=== PATIENT | female | born 1985 | race African-American/Black ===

== ENCOUNTER 2017-03-07 20:30 | Observation (INO) ==
[2017-03-07] MEDS ORDERED: SODIUM CHLORIDE 0.9% 500 ML IV STA (20:51)
[2017-03-07 21:04] LABS: Basophils # 0.1 10*3/uL (0.0-0.2); Basophils % 0.5 % (0.0-0.8); Eosinophils # 0.1 10*3/uL (0.0-0.87); Eosinophils % 0.6 % (0.00-10.9); Hematocrit 39.5 VOL% (35.7-47.0); Immature Granulocytes % 0.6 %; Immature Granulocytes Absolute 0.07 #; Lymphocytes # 4.1 10*3/uL (1.4-4.0); Lymphocytes % 36.9 % (21.3-54.2); Mean Corpuscular HGB Conc 32.9 GM/DL (32-36); Mean Corpuscular Hemoglobin 27 PG (27-34); Mean Corpuscular Volume 80.4 FL (87-102); Monocytes # 0.8 10*3/uL (0.11-0.8); Monocytes % 6.8 % (1.7-12.7); Neutrophils % 54.6 % (38.7-73.9); Platelet Count 284 T/CUMM (130-400); Red Blood Count 4.91 MC/CUMM (3.8-5.5); Red Cell Distribution Width 14.8 % (9.3-17.3)
[2017-03-07 21:11] LABS: Apearance,Urine Slightly Hazy (Clear); Bacteria,Urine Occasional /HPF (Few); Bilirubin,Urine Negative (Negative); Blood, Urine Negative (Negative); Glucose,Urine (UA) Negative (Negative); Ketones,Urine Negative (Negative); Mucus,Urine Few /LPF (Occasional); Nitrite,Urine Negative (Negative); Protein,Urine Negative; RBC,Urine 5 /HPF (0-4); Squamous Epithelial Cell,Urine Occasional /HPF (0-10); Urine Color Yellow (Yellow); Urine Specific Gravity 1.016 (1.001-1.035); Urine Urobilinogen < 2.0 EU/DL (0.2-1.0); WBC,Urine 2 /HPF (0-6)
[2017-03-07] MEDS ORDERED: cefTRIAXone 1,000 MG in SODIUM CHLORIDE 0.9% 100 ML IV STA (21:25)
[2017-03-07 21:37] LABS: Alanine Aminotransferase 22 U/L (13-56); Albumin 3.5 G/DL (3.4-5.0); Alkaline Phosphatase 73 U/L (45-117); Aspartate Amino Transferase 14 U/L (0-37); Bilirubin,Total < 0.39 MG/DL (0.2-1.0); Blood Urea Nitrogen 9 MG/DL (7-18); Calcium 8.9 MG/DL (8.5-10.1); Glucose 131 MG/DL (74-106); Osmolality,Calculated 275.7 MOS/KG (273-304); Potassium 3.8 MMOL/L (3.5-5.1); Sodium 138 MMOL/L (136-145); Total Protein 6.8 G/DL (6.4-8.3)
--- NOTE | 2017-03-07 21:40 | Emergency Department Note ---
Carmela Hill Mantricia, am scribing for, and in the presence of, Sly Ye MD 21:06. Ephraim Hill Charles R, MD, personally performed the services described in this documentation, ascribed by Carlos Casey in my presence, and it is both accurate and complete 140 . Arrival - Arrival Chief Complaint: Abdominal / Flank Pain Stated Complaint: abdominal pain ED Nursing Triage Note: pt presented to triage via w/c with c/o lower abd pain and n/v x 1-2 hrs. pt states she had a (+) home pregancy test last week. denies vaginal bleeding. denies fever Mode of Arrival: Ambulatory Limitations: No Limitations Source: Patient Time Seen by Provider: 03/07/17 20:45 - History of Present Illness HPI Narrative: Pt is a 32 y/o black female ambulating to ED with c/o abdominal pain that onset today. She also c/o lower back pain and N/V. She reports that she thinks that she's having a miscarriage. Pt had a positive home test test last week and is not sure how far along she is. She states that she has an appointment with Dr. Michael. she reports that she is not sure when her LNMP was because she may have 2 periods a year. Because of this, Dr. Michael placed pt on a contraceptive. she recently stopped taking the contraceptive because she wanted to get . She denies any blood in urine. No other complaints were reported to ED. Onset (ago): hour(s) Consistency: constant Severity: mild Date of Last Menstrual Period: unknown Allergies/Adverse Reactions: Allergies Allergy/AdvReac Type Severity Reaction Status Date / Time No Known Allergies Allergy Verified 07/03/16 12:30 Home Medications: Home Medications Medication Instructions Recorded Confirmed Type No Known Home Medications [No 07/03/16 07/03/16 History Known Home Medications] Review of System - Review of System 12 point system: reviewed and no additional remarkable complaints except as stated - Review of System Constitutional: Absent: chills, diaphoresis, fever Respiratory: Absent: cough Cardiovascular: Absent: chest pain Gastrointestinal: Present: abdominal pain, nausea, vomiting. Absent: diarrhea Genitourinary female: Absent: dysuria Musculoskeletal: Absent: arm pain, back pain, leg pain, neck pain Medical,Surgical,& Family Hx - Surgical History Reproductive Surgeries: Surgical HX of;: Dilation and Curettage (2006) - Social History Smoking Status: Never smoker Frequency of Alcohol Use: None Type of Drug Use: None Exam Vital Signs: Vital Signs Temperature 97.0 F L 03/07/17 20:31 Pulse Rate 89 03/07/17 20:31 Respiratory Rate 22 03/07/17 20:31 Blood Pressure 142/76 03/07/17 20:31 O2 Sat by Pulse Oximetry 98 03/07/17 20:31 - General General appearance: alert, in no apparent distress - Head Head exam: Present: atraumatic, normocephalic, normal inspection - Eye Eye exam: Present: normal appearance, PERRL, EOMI - ENT ENT exam: Present: normal exam, normal oropharynx, mucous membranes moist, TM's normal bilaterally, normal external ear exam - Neck Neck exam: Present: normal inspection, full ROM, trachea midline. Absent: tenderness - Chest Chest inspection: Present: normal inspection, symmetric chest wall rise. Absent : tenderness - Respiratory Respiratory exam: Present: normal lung sounds bilaterally - Cardiovascular Cardiovascular exam: Present: regular rate, normal rhythm, normal heart sounds - Abdominal Exam Abdominal exam: Present: soft, tenderness (suprapubic), other (decreased bowel sounds). Absent: distention, guarding, rebound - Extremities Exam Extremities exam: Present: normal inspection, full ROM, normal capillary refill. Absent: tenderness, pedal edema - Back Exam Back exam: Present: normal inspection, full ROM. Absent: tenderness - Neurological Exam Neurological exam: Present: alert, oriented X3, CN II-XII intact, normal gait, reflexes normal - Psychiatric Psychiatric exam: Present: normal affect, normal mood - Skin Skin exam: Present: warm, dry, intact, normal color Course - Consultations Consultation #1: Dr. Michael notified. He said call the surgery team back he will take her to surgery for a diagnostic laparotomy Time: 22:23 Results - Labs CBC & BMP: 03/07/17 20:45 03/07/17 20:45 Lab Results: I have reviewed the patients labs Critical Care Time Critical Care Time: Yes Total Critical Care Time: 60 Disposition Clinical Impression: Ectopic , Pelvic pain Case discussed with: patient, patient's family Disposition: Still a Patient Condition: Guarded Time of Disposition: 22:52
[2017-03-07] MEDS ORDERED: cefTRIAXone 1,000 MG VIAL ONE (21:58)
[2017-03-07] MEDS ORDERED: MEPERIDINE 25 MG/1 ML VIAL IV STA (22:52)
[2017-03-07] MEDS ORDERED: ONDANSETRON 4 MG/2 ML VIAL IV STA (22:52)
[2017-03-07] MEDS ORDERED: MEPERIDINE 25 MG/1 ML VIAL ONE (23:11)
[2017-03-07] MEDS ORDERED: ONDANSETRON 4 MG/2 ML VIAL ONE (23:11)
--- NOTE | 2017-03-08 00:09 | OB/GYN History & Physical ---
History of Present Illness Chief complaint: Pelvic pain, History of present illness: Ms. Casas is a 32 year old female 2 para 0 AB 1 with a history of a positive test, ultrasound demonstrated fluid in the pelvis, and also questionable adnexal structure suggesting an ectopic . In light of her persistent pelvic pain, no intrauterine , uncertain last menstrual cycle this patient is being presented for a diagnostic laparoscopy possible salpingectomy for a ruptured ectopic risks benefits were thoroughly discussed with this patient and she fully understands our procedure. 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 - Constitutional Vitals: Vital Signs Temp Pulse Resp BP Pulse Ox 03/07/17 20:45 79 18 124/57 03/07/17 20:31 97.0 F L 89 22 142/76 98 General appearance: mild distress - Head Head exam: Present: normal inspection - Eye Eye exam: Present: EOMI Pupils: Present: MECCA - ENT ENT exam: Present: normal exam - Neck Neck exam: Present: normal inspection - Respiratory Respiratory exam: Present: clear to auscultation bilaterally - Breast Breasts: as per HPI Menstruation: as per HPI - Cardiovascular Cardiovascular exam: Present: regular rate and rhythm - GI/Abdominal GI/Abdominal exam: Present: normal bowel sounds, tenderness, rebound, soft - Extremities Exam Extremities exam: Present: normal inspection - Back Exam Back exam: Present: normal inspection - Neurological Exam Neurological exam: Present: alert - Psychiatric Psychiatric exam: Present: normal affect - Skin Skin exam: Present: normal color Assessment and Plan (1) Ectopic Status: Acute Assessment and plan: Diagnostic laparoscopy rule out ectopic . Current Visit: Yes Results - Labs CBC & BMP: 03/07/17 20:45 03/07/17 20:45
[2017-03-08] MEDS ORDERED: SUGAMMADEX 200 MG/2 ML VIAL IV ONE (00:33)
[2017-03-08] MEDS ORDERED: IBUPROFEN 800 MG TABLET PO PRN (00:36)
[2017-03-08] MEDS ORDERED: BENZOCAINE/MENTHOL LOZENGE 18/BOX PO PRN (00:36)
[2017-03-08] MEDS ORDERED: BISACODYL 10 MG SUPP RECTAL PRN (00:36)
[2017-03-08] MEDS ORDERED: ACETAMINOPHEN 325 MG TABLET PO PRN (00:36)
--- NOTE | 2017-03-08 00:36 | Operative Note ---
Date of procedure: 03/08/17 Procedure: Preoperative diagnosis: [] Rule out ectopic Postoperative diagnosis: Same, ruptured right ectopic Anesthesia: General. endotracheal anesthesia Estimated blood loss: [] Total blood loss for the procedure less than 50 cc Surgeon: Dr. Michael Findings: [] Ruptured right ectopic blood in the cul-de-sac and on the right pelvic gutter a dilated fallopian tube from the fimbriated into the isthmic region. Procedure: Diagnostic laparoscopy, right partial salpingectomy The patient was taken to the operating suite where general anesthesia was obtained without difficulty. The patient was then examined under anesthesia and found to have a small anteverted uterus with normal adnexa. She was then placed in the dorsal lithotomy position and prepared and draped in usual sterile fashion. A bivalve speculum was then placed and the patient vagina with the anterior of the cervix grasped with a single-tooth tenaculum. A [employer] uterine manipulator was is advanced into the uterus to provide a means to manipulate the uterus. The speculum was removed from the vagina. The Veress needle was carefully introduced in the peritoneal cavity at a 45 angle while tenting the abdominal wall. Intraperitoneal placement was confirmed by use of a water-filled syringe. The trocar and sleeve was then advanced without difficulty intom the abdomen where intra-abdominal placement was confirmed by the laparoscope. Pneumoperitoneum was obtained with 4 L of CO2 gas and the 10 mm trocar and sleeve was then advanced without difficulty into the abdomen where intra-abdominal placement was confirmed by laparoscope. A second skin incision was made 2 cm above the symphysis pubis was in the minimum midline. The second trocar and sleeve was then advanced under direct visualization. Survey of the patient's pelvis and abdomen revealed entirely abnormal anatomy. The right fallopian tube was extremely dilated. Through the third puncture site which is on the right lateral lower quadrant. A grasper was then used to grab the fallopian tube. Then using the halo forceps. The fallopian tube was cauterized across this mesosalpinx removing the dilated portion of the fallopian tube. The suprapubic port now the Endosac was placed inside and the fallopian tube and products of conception was placed inside his back. This was removed to the suprapubic port. Hemostasis maintained irrigation was performed all instruments removed CO2 gas expressed. [] The instruments were then removed from the patient's abdomen, and the incision repaired with 3-0 Vicryl. The HUMI was then removed from the vagina with no bleeding noted from the cervix. The patient tolerated procedure well. Sponge, lap and needle counts were correct -2. The patient was extubated in the operating room. And taken to to the recovery room in stable condition. Surgeon / Physician: Marychuy Michael Results - Labs CBC & BMP: 03/07/17 20:45 03/07/17 20:45 Discharge Plan - Discharge Medications No Action No Known Home Medications [No Known Home Medications] - Follow Up or Referral - Forms/Instructions
[2017-03-08] MEDS ORDERED: PROPOFOL 200 MG/20 ML VIAL IV ONE (00:48)
[2017-03-08] MEDS ORDERED: MIDAZOLAM 2 MG/2 ML VIAL ONE (00:49)
[2017-03-08] MEDS ORDERED: ONDANSETRON 4 MG/2 ML VIAL IV PRN (00:49)
[2017-03-08] MEDS ORDERED: SUCCINYLCHOLINE 200 MG/10 ML VIAL ONE (00:49)
[2017-03-08] MEDS ORDERED: fentaNYL 100 MCG/2 ML VIAL ONE (00:49)
[2017-03-08] MEDS ORDERED: DESFLURANE 1 UNIT/15 MINUTE INH ONE (00:49)
[2017-03-08] MEDS ORDERED: ROCURONIUM 100 MG/10 ML VIAL IV ONE (00:49)
[2017-03-08] MEDS ORDERED: ONDANSETRON 4 MG/2 ML VIAL ONE (00:50)
[2017-03-08] MEDS ORDERED: HYDROmorphone 2 MG/1 ML VIAL ONE (00:50)
[2017-03-08] MEDS: HYDROmorphone 2 MG/1 ML VIAL IV PRN ×4 (00:52→01:12)
[2017-03-08] MEDS: ONDANSETRON 4 MG/2 ML VIAL IV PRN ×3 (00:53→20:55)
[2017-03-08] MEDS ORDERED: LACTATED RINGERS 1,000 ML IV SCH (01:00)
--- NOTE | 2017-03-08 06:23 | Ultrasound Report ---
US OB <= 14 weeks fetus Indication: Vaginal bleeding Comparison: Pelvic ultrasound dated October 05, 2007 Technique: Multiple longitudinal and transverse sonographic images of the maternal abdomen/pelvis were obtained with transabdominal probe for evaluation of . Transvaginal probe was then utilized secondary to poor imaging with transabdominal probe. Findings: Uterus is retroverted and measures 8.2 x 3.5 x 5.1 cm. Endometrial stripe measures 1 cm. No gestational sac or pole visualized. Right ovary measurement given of 3.8 x 2.3 x 2.5 cm. Left ovary measurement given of 2.7 x 2.7 x 2.7 cm. Right adnexal mass demonstrated measuring up to 2.7 x 3.4 x 1.5 cm which is heterogeneously hyperechoic. Small amount of complex fluid noted within the pelvis suspicious for hemorrhage. IMPRESSION: Right adnexal mass demonstrated measuring up to 2.7 x 3.4 x 1.5 cm which is heterogeneously hyperechoic. Small amount of complex fluid noted within the pelvis suspicious for hemorrhage. In the setting of positive test, findings are highly concerning for ruptured ectopic . No intrauterine gestation demonstrated. Preliminary report was issued by [facility]. Findings verbally communicated with Dr. Sly Ye 10:21 PM on March 07, 2017 by Liborio Zavala. PROCEDURE INTERPRETED AT [facility] DEPARTMENT OF RADIOLOGY Final Report Signed by: Dr Ayad Marie
[2017-03-08 06:36] LABS: Basophils # 0.1 10*3/uL (0.0-0.2); Basophils % 0.4 % (0.0-0.8); Hemoglobin 12.4 GM/DL (12.0-16.0); Immature Granulocytes % 0.9 %; Immature Granulocytes Absolute 0.13 #; Lymphocytes % 6.8 % (21.3-54.2); Mean Corpuscular HGB Conc 32.6 GM/DL (32-36); Mean Corpuscular Hemoglobin 26 PG (27-34); Mean Corpuscular Volume 80.9 FL (87-102); Mean Platelet Volume 10.6 FL (9.6-12.0); Monocytes # 0.8 10*3/uL (0.11-0.8); Monocytes % 5.5 % (1.7-12.7); Neutrophils % 86.4 % (38.7-73.9); Platelet Count 311 T/CUMM (130-400); Red Cell Distribution Width 14.6 % (9.3-17.3); White Blood Count 13.9 T/CUMM (4-12)
--- NOTE | 2017-03-08 07:53 | Anesthesia Post-Op ---
Anesthesia Post OP - Post Ansesthetic Evaluation Patient seen in post op: Yes Resp: within normal limits CV: within normal limits Mental: within normal limits Temp: within normal limits Taxe-Co-Flhdsrqjz: within normal limits Nausea and Vomiting: within normal limits Pain: within normal limits
[2017-03-08] MEDS: SIMETHICONE CHEW 80 MG TABLET PO PRN (09:47)
[2017-03-08] MEDS: DOCUSATE SODIUM 100 MG CAPSULE PO PRN (09:47)
[2017-03-08] MEDS: MAGNESIUM HYDROXIDE SUSP 30 ML UDCUP PO PRN (09:48)
--- NOTE | 2017-03-09 07:46 | OB/GYN Progress Note ---
Assessment and Plan (1) Ectopic Status: Acute Current Visit: Yes (2) Status post laparoscopy Status: Acute Assessment and plan: Initiate routine postop orders. Current Visit: Yes [employer] - PN: Subj Interval history: Stable with no complaints. Exam [employer] - Constitutional Vitals: Vital Signs Temp Pulse Resp BP Pulse Ox 03/09/17 05:54 17 03/09/17 04:00 98.9 F 75 18 111/60 97 03/09/17 02:00 18 03/09/17 01:00 17 03/09/17 00:00 97.1 F L 74 18 121/69 98 03/08/17 20:00 98.7 F 79 19 116/62 98 03/08/17 18:03 20 03/08/17 18:00 20 03/08/17 17:00 20 03/08/17 16:00 97.8 F 65 20 105/68 99 03/08/17 14:29 20 03/08/17 14:00 20 03/08/17 13:00 18 03/08/17 12:00 97.6 F 75 18 121/69 99 03/08/17 11:58 20 03/08/17 11:00 20 03/08/17 10:00 20 03/08/17 09:00 20 03/08/17 08:00 97.6 F 88 20 111/69 98 General appearance: no acute distress - Gyencological / Post Surgical Post Surgical Exam Lungs: bilateral: normal Chest: Normal S1, Normal S2 Extremities T[employer]: Present: normal Abdomen obstetrics progress note: Present: normal appearance, soft Incision OB: Present: normal, intact - Head Head exam: Present: normal inspection - Respiratory Respiratory exam: Present: clear to auscultation bilaterally - Cardiovascular Cardiovascular exam: Present: regular rate and rhythm - GI/Abdominal GI/Abdominal exam: Present: normal bowel sounds, soft - Extremities Exam Extremities exam: Present: normal inspection - Neurological Exam Neurological exam: Present: alert, oriented X3 - Psychiatric Psychiatric exam: Present: normal affect, normal mood - Skin Skin exam: Present: normal color, warm Results - Labs CBC & BMP: 03/08/17 05:24 03/07/17 20:45
[2017-03-09] MEDS ORDERED: MAGNESIUM CITRATE 300 ML BOTTLE PO PRN (09:09)
--- NOTE | 2017-03-09 09:53 | Discharge Summary ---
Hospital Course - Hospital Course Hospital Course: Status post laparoscopic salpingectomy secondary to an ectopic . Patient remained in the hospital for approximately her second postoperative day and doing well. She will be discharged follow my office in approximately 2 weeks. Postop instructions were given Diagnosis - Discharge Diagnosis (1) Ectopic Status: Acute Specialty Discharge - Follow Up or Referrals Follow up with: Marychuy Michael MD [Physician] - 03/17/17 10:00 am Discharge Plan - Discharge Data Condition at Discharge: Stable Discharge Diet: advance to your usual diet Activity: resume usual activities as tolerated Hygiene: may shower Weight Bearing at Discharge: weight bear as tolerated Driving: no restrictions Contact your physician if you experience:: fever over 101, Bleeding - Discharge Medications New HYDROcodone/ACETAMIN 5-325 [Henniker 5-325] 1 tablet PO Q4H PRN #20 tablet PRN Reason: Pain Moderate (4-7) Ibuprofen Tab [Motrin Tab] 800 mg PO Q8H PRN #30 tablet PRN Reason: Pain Mild To Moderate (1-7) No Action No Known Home Medications [No Known Home Medications] - Follow Up or Referral Follow Up: Mayrchuy Michael MD [Physician] - 03/17/17 10:00 am - Forms/Instructions Exam - Constitutional Vitals: Period Temp Pulse Resp BP Sys/Peng Pulse Ox Last 24 Hr 97.1 F-98.9 F 65-79 17-20 105-121/60-69 97-99 General appearance: no acute distress - Head Head exam: Present: normal inspection - Eye Eye exam: Present: EOMI Pupils: Present: MECCA - ENT ENT exam: Present: normal exam - Neck Neck exam: Present: normal inspection - Respiratory Respiratory exam: Present: clear to auscultation bilaterally - Cardiovascular Cardiovascular exam: Present: regular rate and rhythm - GI/Abdominal GI/Abdominal exam: Present: normal bowel sounds, other (Incision sites are intact) - Extremities Exam Extremities exam: Present: normal inspection - Back Exam Back exam: Present: normal inspection - Neurological Exam Neurological exam: Present: alert, oriented X3 - Psychiatric Psychiatric exam: Present: normal affect - Skin Skin exam: Present: normal color Discharge Results Procedures and tests throughout hospitalization: Pending Orders 03/07/17 Urine Culture Routine Labs on day of discharge: Preliminary micro results at discharge 03/07/17 Unknown Urine Culture - Preliminary Urine,Voided No Growth at 12 hours. DS: Provider Date of admission: 03/07/17 23:57 Primary care physician: . No PCP Attending physician on admission: Marychuy Michael MD Discharging clinician: Marychuy Michael MD
[2017-03-09 10:49] VITALS: BP 124/71
[2017-03-09] MEDS: MAGNESIUM HYDROXIDE SUSP 30 ML UDCUP PO PRN (11:25)
[2017-03-09] MEDS: DOCUSATE SODIUM 100 MG CAPSULE PO PRN (11:25)
[2017-03-09] MEDS: SIMETHICONE CHEW 80 MG TABLET PO PRN (11:25)
[2017-03-09] MEDS: ONDANSETRON 4 MG/2 ML VIAL IV PRN (14:25)
--- NOTE | 2017-03-10 13:16 | Pathology Report from [facility] ---
[facility] – [place] ACCESSION # : [id number] PATIENT NAME : Sang Danielson ORDERING DR : ANTOINE TOTH MD CLINICAL HX: Ectopic POST-OP DX: Same SPECIMEN INFO: Partial RT tube GROSS DESCRIPTION: Received in formalin labeled SANG DANIELSON is a fimbriated fallopian tube segment measuring 3.7 x 1 cm. The serosa is deep beefy red with a 0.5 cm fluid filled cyst present at the distal portion of the tube. The cut surfaces are markedly hemorrhagic. [employer] Consultant sections are submitted in cassettes A&B. DIAGNOSIS FOR SANG DANIELSON: RIGHT FALLOPIAN TUBE: Hematosalpinx. No chorionic villi observed. One focal area of trophoblastic tissue seen. Serial HCG levels may prove helpful in following this patient. COLLECTED DATE: 03/08/2017 [facility] [place] REPORT DATE: 03/10/2017 ELECTRONICALLY SIGNED BY: Angel Ward III, M.D. 03/10/2017 - 9:15:07 [facility]
== END 2017-03-09 17:10 | disposition home or self-care (01) ==
LOC: N.ED 20:30 → N.OB 23:50 → INTOOBSV 23:57 → N.OB 23:57
PROVIDERS: ADMIT Obstetrics & Gynecology; ATTEND Obstetrics & Gynecology